=== PATIENT | male | born 1985 | race Caucasian/White ===

== ENCOUNTER 2021-12-08 21:28 | Inpatient (IN) | payer OTHER ==
[~2021-12-08] VITALS: Ht 185.4 cm; Wt 92.8 kg
[2021-12-08] MEDS ORDERED: GABA-1181 PO (22:02)
[2021-12-08] MEDS ORDERED: OXYC5 PO (22:02)
[2021-12-08 22:12] LABS: BASOPHILS % (AUTO) 0.8 % (0.0-2.0); EOSINOPHILS % (AUTO) 1.8 % (1.0-6.0); HEMATOCRIT 39.1 % (41-53); HEMOGLOBIN 13.4 g/dL (13.5-17.5); LYMPHOCYTES # (AUTO) 2.2 K/uL (1.0-4.8); LYMPHOCYTES % (AUTO) 42.1 % (22.0-44.0); MEAN CORPUSCULAR HGB CONC 34.2 G/dL (31.0-37.0); MEAN CORPUSCULAR VOLUME 91 fL (80-100); MONOCYTES # (AUTO) 0.6 K/uL (0.1-1.0); MONOCYTES % (AUTO) 11.2 % (2.0-9.0); NEUTROPHILS # (AUTO) 2.3 K/uL (1.8-7.7); NEUTROPHILS % (AUTO) 44.1 % (40.0-70.0); PLATELET COUNT (AUTO) 237 K/uL (150-450); RED BLOOD CELL COUNT(AUTO) 4.31 MIL/uL (4.50-5.90)
[2021-12-08 22:19] LABS: ANION GAP 2 mmol/L (8-16); CALCIUM, TOTAL 8.7 mg/dL (8.8-10.5); CARBON DIOXIDE 30 mmol/L (22-29); CHLORIDE 101 mmol/L (98-107); CREATININE 0.86 mg/dL (0.60-1.30); GLUCOSE,RANDOM 103 mg/dL (70-110); SODIUM SERUM 133 mmol/L (136-145); UREA NITROGEN, BLOOD 7 mg/dL (7-18)
[2021-12-08 22:20] LABS: GLOMERULAR FILTR. RATE CALC > 60 mL/min (>60)
[2021-12-08 22:25] LABS: ALANINE AMINOTRANSFERASE 40 U/L (12-78); ALBUMIN 4.3 g/dL (3.4-5.0); ALKALINE PHOSPHATASE 62 U/L (46-116); ASPARTATE AMINOTRANSFERASE 33 U/L (15-37); BILIRUBIN,TOTAL 0.5 mg/dL (0.1-1.0); TOTAL PROTEIN, SERUM 7.2 g/dL (6.4-8.2)
[2021-12-08] MEDS ORDERED: ACETAMINOPHEN 325 MG TABLET PO PRN (23:45)
[2021-12-08] MEDS ORDERED: ONDANSETRON HCL 4 MG/2 ML VIAL IVP PRN (23:45)
[2021-12-09] MEDS: HEPARIN SODIUM,PORCINE 5,000 UNITS/ML VIAL SQ SCH ×5 (00:16→23:31)
[2021-12-09 01:34] LABS: COVID AG,FIA SOURCE NASAL SWAB
[2021-12-09 02:30] VITALS: BP 111/64
[2021-12-09] MEDS ORDERED: PNEUMOCOCCAL VACCINE POLYVALENT 0.5 ML VIAL [PPSV23] IM. ONE (03:30)
[2021-12-09 08:13] VITALS: BP 106/57
[2021-12-09] MEDS: ACETAMINOPHEN 650 MG/20.3 ML SOLUTION UDCUP PO PRN ×2 (11:38→19:56)
[2021-12-09 11:59] LABS: AMPHET/METH SCREEN,URINE NEGATIVE (NEGATIVE); BARBITURATE SCREEN, URINE NEGATIVE (NEGATIVE); BENZODIAZEPINES SCREEN,URINE NEGATIVE (NEGATIVE); CANNABINOID SCREEN,URINE NEGATIVE (NEGATIVE); COCAINE SCREEN,URINE NEGATIVE (NEGATIVE); METHADONE SCREEN, URINE NEGATIVE (NEGATIVE); OPIATE SCREEN,URINE NEGATIVE (NEGATIVE)
[2021-12-09 12:01] LABS: PHENCYCLIDINE SCREEN,URINE NEGATIVE (NEGATIVE)
[2021-12-09 15:49] VITALS: BP 107/68
[2021-12-09 19:25] VITALS: BP 127/67
[2021-12-10 07:56] VITALS: BP 102/88
[2021-12-10] MEDS: HEPARIN SODIUM,PORCINE 5,000 UNITS/ML VIAL SQ SCH (08:00)
== END 2021-12-10 15:10 | DRG 641 ==
LOC: EMS 21:28 → 6S 12-09 01:11 → UNDODISIN 12-10 10:00
PROVIDERS: ADMIT Internal Medicine; ATTEND Internal Medicine
DX: E87.1 Hypo-osmolality and hyponatremia (principal); F33.2 Major depressive disorder, recurrent severe without psychotic features; R45.851 Suicidal ideations; G54.0 Brachial plexus disorders; F15.90 Other stimulant use, unspecified, uncomplicated; F41.9 Anxiety disorder, unspecified; Z20.822 Contact with and (suspected) exposure to COVID-19; Z79.899 Other long term (current) drug therapy
CPT/HCPCS: 80053; 85025; 87081; 99285; G0480; J1644

== ENCOUNTER → 2022-09-04 | Outpatient (CLI) | payer OTHER ==
[~2022-09-04] MED LIST: GADOTERATE MEGLUMINE 10 MMOL/20 ML VIAL IVP ONE
== END | disposition home or self-care (01) ==
LOC: RADMN 09:53
PROVIDERS: ATTEND Family Medicine
DX: G93.89 Other specified disorders of brain (principal); M27.40 Unspecified cyst of jaw; H57.12 Ocular pain, left eye; H53.2 Diplopia
CPT/HCPCS: 70543; 70553; A9575

== ENCOUNTER 2024-10-12 19:52 | Emergency (ER) | payer MEDICAID, OTHER ==
[~2024-10-12] VITALS: Ht 182.9 cm; Wt 97.7 kg
[2024-10-12 19:56] VITALS: BP 111/71; PULSE 96; RESP 16; TEMP 98; O2SAT 97
[2024-10-12] MEDS: KETOROLAC TROMETHAMINE 30 MG/ML VIAL IM ONE (21:21)
[2024-10-12] MEDS: TraMADol HCL 50 MG TABLET PO ONE (21:21)
== END 2024-10-12 21:45 | disposition home or self-care (01) ==
LOC: EMS 19:52
DX: S80.01XA Contusion of right knee, initial encounter (principal); F15.90 Other stimulant use, unspecified, uncomplicated; F32.A Depression, unspecified; Z98.890 Other specified postprocedural states; W22.8XXA Striking against or struck by other objects, initial encounter; Y93.89 Activity, other specified; Y92.89 Other specified places as the place of occurrence of the external cause; Y99.8 Other external cause status
CPT/HCPCS: 99283; 73562; 96372; J1885

== ENCOUNTER 2024-10-23 20:31 | Emergency (ER) | payer MEDICAID, OTHER ==
[~2024-10-23] VITALS: Ht 188 cm; Wt 97.7 kg
[2024-10-23 20:35] VITALS: BP 101/74; PULSE 87; RESP 17; TEMP 97.9; O2SAT 98
[2024-10-23] MEDS ORDERED: PARO-38 PO (21:25)
[2024-10-23] MEDS ORDERED: ATOM40CA6 PO (21:25)
[2024-10-23] MEDS ORDERED: GABA-1201 PO (21:25)
[2024-10-23] MEDS ORDERED: TIZA-211 PO (21:25)
[2024-10-23] MEDS: KETOROLAC TROMETHAMINE 60 MG/2 ML VIAL IM ONE (21:49)
[2024-10-23] MEDS: TraMADol HCL 50 MG TABLET PO ONE (21:49)
[2024-10-23] MEDS: methocarbamoL 500 MG TABLET PO ONE (21:49)
[2024-10-23] MEDS: GABAPENTIN 400 MG CAPSULE PO ONE (23:11)
[2024-10-23] MEDS: LIDOCAINE 5% TRANSDERMAL PATCH TD ONE (23:11)
[2024-10-23] MEDS: HYDROCODONE/ACETAMINOPHEN 5-325 MG TABLET PO ONE (23:12)
[2024-10-23] MEDS ORDERED: CYCL-448 PO (23:27)
== END 2024-10-23 23:56 | disposition home or self-care (01) ==
LOC: EMS 20:31
DX: M54.59 Other low back pain (principal); M54.31 Sciatica, right side; F32.A Depression, unspecified; F15.90 Other stimulant use, unspecified, uncomplicated; Z98.890 Other specified postprocedural states; Z79.899 Other long term (current) drug therapy; W19.XXXA Unspecified fall, initial encounter; Y93.89 Activity, other specified; Y92.89 Other specified places as the place of occurrence of the external cause; Y99.8 Other external cause status
CPT/HCPCS: 99284; 72110; 96372; J1885